=== PATIENT | female | born 1975 ===

== ENCOUNTER 2017-03-17 17:29 | Emergency (ER) | payer OTHER ==
[2017-03-17 17:58] VITALS: O2SAT 20
--- NOTE | 2017-03-17 18:32 | C.PDOC ---
History Of Present Illness 41 y/o F c no PMHx p/w dizziness x 1 month. Patient describes dizziness as an intermittent spinning sensation that occurs daily for the past month, especially when she sits up from a lying down position. She reports associated nausea and vomiting with the spinning. She denies head injury, recent colds, swimming, abdominal pain, chest pain, dyspnea, numbness, weakness. She does report heavy and more frequent menstrual periods the last 2 months. 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 She is unsure what her normal blood pressure is. Time Seen by Provider: 03/17/17 18:16 Chief Complaint (Nursing): Dizziness/Lightheaded History Per: Patient History/Exam Limitations: no limitations Onset/Duration Of Symptoms: Days (1 month ) Past Medical History Reviewed: Historical Data, Nursing Documentation, Vital Signs Vital Signs: Last Vital Signs Temp 98.7 F 03/17/17 17:55 Pulse Resp 91 H 03/17/17 17:55 BP 120/77 03/17/17 17:55 Pulse Ox 20 L 03/17/17 18:47 Family History: States: No Known Family Hx - Social History Hx Alcohol Use: No Hx Substance Use: No - Immunization History Hx Tetanus Toxoid Vaccination: No Hx Influenza Vaccination: No Hx Pneumococcal Vaccination: No Review Of Systems Except As Marked, All Systems Reviewed And Found Negative. Constitutional: Negative for: Fever Cardiovascular: Negative for: Chest Pain Gastrointestinal: Positive for: Nausea, Vomiting. Negative for: Abdominal Pain Neurological: Positive for: Dizziness. Negative for: Weakness, Numbness Physical Exam - Physical Exam Additional Physical Exam Comments: Constitutional: No acute distress. Head: Normocephalic. Atraumatic. Eyes: PERRL. ENT: Moist mucous membranes. Positive Lewis Hallpike maneuver. Neck: Supple. Cardiovascular: Regular rate. Radial pulses 2+ bilaterally. Chest: No tenderness. Respiratory: Clear to auscultation bilaterally. GI: Soft. Nontender. Nondistended. Back: No CVA tenderness. Musculoskeletal: No tenderness or swelling of extremities. Skin: No rash. Neurologic: Alert, no focal deficit. Normal FTN, HTS. Steady gait. ED Course And Treatment - Laboratory Results Result Diagrams: 03/17/17 18:51 03/17/17 18:51 O2 Sat by Pulse Oximetry: 20 (RA ) Pulse Ox Interpretation: Normal Medical Decision Making Medical Decision Making: Consistent with BPPV. Administer meclizine and reassess. Check labs and urine. Blood pressure normal in ED. PLAN: * CBC * CMP * HCG * Urinalysis * Meclizine PO Patient feels well, no more vertigo. Labs unremarkable. Will discharge home, f/ u ENT, return to ER for worsening pain, fever, vomiting, dyspnea, or any other problem. Disposition - Disposition Referrals: James Retana MD [Staff Provider] - Disposition: HOME/ ROUTINE Disposition Time: 19:53 Condition: STABLE Prescriptions: Meclizine [Antivert] 25 mg PO TID PRN #20 tab PRN Reason: Dizziness Instructions: Benign Paroxysmal Positional Vertigo (ED) Forms: [facility] (Italian) - Clinical Impression Clinical Impression: BPPV (benign paroxysmal positional vertigo) - Scribe Statement The provider has reviewed the documentation as recorded by the Gingeribcharles Ann Provider Attestation: All medical record entries made by the Scribe were at my direction and personally dictated by me. I have reviewed the chart and agree that the record accurately reflects my personal performance of the history, physical exam, medical decision making, and the department course for this patient. I have also personally directed, reviewed, and agree with the discharge instructions and disposition.
[2017-03-17 18:55] LABS: BASO # 0.1 K/uL (0.0-0.2); BASO % 0.8 % (0.0-2.0); EOS # 0.2 K/uL (0.0-0.7); EOS % 2.7 % (0.0-4.0); HEMATOCRIT 37.4 % (34.0-47.0); LYMPH # 2.9 K/uL (1.0-4.3); LYMPH % 41.4 % (20.0-40.0); MEAN CELL VOLUME 92.2 fL (81.0-99.0); MEAN CORPUSCULAR HEMOGLOBIN 30.7 pg (27.0-31.0); MEAN CORPUSCULAR HGB CONC 33.2 g/dL (33.0-37.0); MEAN PLATELET VOLUME 7.4 fL (7.2-11.7); MONO # 0.8 K/uL (0.0-0.8); MONO % 11.7 % (0.0-10.0); NRBC % 0.1 % (0.0-2.0); WHITE BLOOD COUNT 6.9 K/uL (4.8-10.8)
[2017-03-17 19:03] LABS: CHLORIDE 102 mmol/L (98-107); SODIUM 136 mmol/L (132-148)
[2017-03-17 19:05] LABS: BILIRUBIN,TOTAL 0.7 mg/dL (0.2-1.3); CARBON DIOXIDE 24 mmol/L (22-30); GFR AFRICAN-AMERICAN > 60
[2017-03-17 19:06] LABS: ALB/GLOB RATIO 1.2 (1.0-2.1); ALKALINE PHOSPHATASE 64 U/L (38-126); ALT/SGPT 26 U/L (9-52); AST/SGOT 20 U/L (14-36); BLOOD UREA NITROGEN 13 mg/dL (7-17); CALCIUM 8.8 mg/dl (8.6-10.4); GLUCOSE,RANDOM 94 mg/dL (65-105)
[2017-03-17 19:16] LABS: RBC URINE 8 /hpf (0-3); URINE BACTERIA RARE (<OCC); URINE BILIRUBIN NEGATIVE (NEGATIVE); URINE BLOOD 1+ (NEGATIVE); URINE COLOR Yellow (YELLOW); URINE GLUCOSE (UA) NORMAL (Normal); URINE KETONE NEGATIVE (NEGATIVE); URINE LEUKOCYTE ESTERASE NEG Leu/uL (Negative); URINE PROTEIN NEGATIVE (NEGATIVE); URINE UROBILINOGEN NORMAL mg/dL (0.2-1.0); WBC URINE 1 /hpf (0-5)
[2017-03-17 19:55] VITALS: BP 105/68; PULSE 54; RESP 18; TEMP 97.9
== END 2017-03-17 20:15 | disposition home or self-care (01) ==
LOC: C.ER 17:29
DX: H81.10 Benign paroxysmal vertigo, unspecified ear (principal)